=== PATIENT | male | born 1965 | race Caucasian/White ===

== ENCOUNTER 2016-10-15 13:02 | Emergency (ER) | payer MEDICARE ==
[~2016-10-15] VITALS: Ht 175.3 cm; Wt 86.2 kg
[2016-10-15 13:05] VITALS: Ht 175.3 cm; Wt 86.2 kg
--- NOTE | 2016-10-15 13:11 | NUR ---
PROVIDER Charlie CORONA APRN AT BEDSIDE FOR EXAM.
--- NOTE | 2016-10-15 13:22 | ERPDOC ---
Departure Disposition Decision Date: October 15, 2016 Disposition Decision Time: 17:49 Disposition: 01 DISCHARGED HOME, SELF-CARE Impression Impression Impression: Primary Impression: Schizophrenia Schizophrenia type: unspecified Qualified Codes: F20.9 - Schizophrenia, unspecified Severity: Moderate Condition: Stable Seen By: Mid-level only Problems/Meds/Labs Reviewed?: Yes Medications reviewed and manag: Yes Follow up care ordered?: Yes Mental Status: Alert HPI - Psychosocial General Stated Complaint: SUICIDAL THOUGHTS Time Seen by MD: 13:03 Source: patient, family (Niece) Exam Limitations: no limitations HPI - Psychosocial Initial Comments He is from [place]. Came out to [place] the first week of September. Had been taking his medications but about a week ago he chopped up all his meds and flushed them down the toilet. He has a history of Schizophrenia and his symptoms have gotten worse. He is having rapid thoughts and speech. This morning his niece found him outside yelling and cussing but no one was there. He was talking to himself. He also was yelling at the cars driving by. Was advised to come to ER for evaluation and PV will come screen if medically cleared.. He does report that he wants to kill himself. Occurred At: home Onset: Gradual Duration: 1 week Severity: moderate Associated Symptoms: anxiety, impaired concentration, suicidal ideation, DENIES : ingestion, injury, insomnia Hx of Similar Symptoms: No Allergies: Coded Allergies: lamotrigine (Verified Allergy, Mild, RASH, 10/15/16) haloperidol (Verified Adverse Reaction, Severe, 10/15/16) "IT PARALYZES ME" Review of Systems Constitutional Constitutional: DENIES: chills, dizziness, fatigue, fever, weakness Eyes Vision: DENIES: blurring, double vision ENMT Ears: DENIES: drainage, pain Sinuses: DENIES: congestion, rhinorrhea Mouth/Throat: DENIES: painful swallowing, scratchy throat, sore throat Cardiovascular Cardiac: DENIES: chest pain, orthopnea Rhythm/Rate: DENIES: irregular beat, palpitations Pulmonary Respiratory: DENIES: cough, dyspnea, sputum, tachypnea GI Upper Abdomen: DENIES: nausea, pain, vomiting Lower Abdomen: DENIES: constipation, diarrhea, pain Integumentary Skin: DENIES: rash Neurological General: DENIES: headache, numbness, tingling, weakness Physical Exam General General Nourishment: well nourished, well developed, appears stated age, no acute distress, adult General Body Habitus: well groomed Vitals and Pain First Documented Vital Signs Date Time Temp Pulse Resp B/P Pulse Ox O2 Delivery O2 Flow Rate FiO2 10/15/16 13:05 98.2 97 16 123/82 95 Room Air Weight: Kilograms: Height (feet): Height (inches): Triage Pain Scale: RN VS reviewed by Provider: Yes Normal Exams: Eyes: Pupils are PERRLA w/ EOMI, No scleral icterus, irritation, or foreign bodies noted ENMT: No facial trauma, nasal exudates, pharyngeal erythema, or exudates are noted Neck: Full range of motion, without adenopathy, JVD, bruits or thyromegaly Chest/Resp: Clear all peacock, with good airflow, and symmetry bilaterally CV: Regular rate and rhythm, without murmur or gallop, Pulses 2+ all extremities, capillary refill, <2 seconds all ext., no pedal edema noted Abdomen: Bowel sounds positive, soft, non-tender, non-distended, no hepatosplenomegaly, masses or bruits noted Lymphatic: No lymphadenopathy, or lymphedema noted Integumentary: No rashes, hives, or bruising noted Neurologic: Patient is alert, and oriented, cranial nerves, motor/sensory/ cerebellar, exams w/o gross deficits, to observation Psychiatric: Patient exhibits, appropriate attention, emotion and affect Psychiatric (brief) Psychiatric Brief: FOUND: alert, oriented, other (He does have fast speech and wanders with his subject during HPI. Has to be redirected but does have trouble no speaking during exam. ) Differential Diagnoses Considering: Anxiety, Bipolar, Hallucinations, Shira, Acute Psychosis, Suicidal Ideation Progress Results/Orders Orders Procedure Category Date Status Time Cbc W/Auto LAB 10/15/16 Complete Diff-Reflex Manual 13:15 Bmp - Basic Metabolic LAB 10/15/16 Complete Panel 13:15 Ethanol LAB 10/15/16 Complete 13:15 Drug Screen LAB 10/15/16 Complete Urine[place] [facility] [place] 13:15 Acetaminophen LAB 10/15/16 Complete 13:15 Salicylate LAB 10/15/16 Complete 13:15 Ua, Dip Wreflex LAB 10/15/16 Complete Microsc & Bowl Sander 13:15 Tsh - Thyroid Stim LAB 10/15/16 Complete Hormone 13:15 Lorazepam (Ativan) PHA 10/15/16 Complete 15:15 Olanzapine (Zyprexa) PHA 10/15/16 Complete 19:15 Lorazepam (Ativan) PHA 10/15/16 Complete 20:00 Lab Results Laboratory Tests Test 10/15/16 13:49 White Blood Count 9.2T/MM3 Red Blood Count 4.91M/MM3 Hemoglobin 14.8GM/DL Hematocrit 44.5% Mean Corpuscular Volume 90.6UM3 Mean Corpuscular Hemoglobin 30.1UUG Mean Corpuscular Hemoglobin Concent 33.3GM/DL RDW Standard Deviation 47.2FL Platelet Count 274T/MM3 Mean Platelet Volume 9.0UM3 Immature Granulocyte % (Auto) 0.1% Neutrophils (%) (Auto) 51.4% Lymphocytes (%) (Auto) 32.7% Monocytes (%) (Auto) 13.8% Eosinophils (%) (Auto) 1.6% Basophils (%) (Auto) 0.4% Absolute Immature Granulocyte (auto 0.01T/MM3 Absolute Neutrophils (auto) 4.7T/MM3 Absolute Lymphocytes (auto) 3.0T/MM3 Absolute Monocytes (auto) 1.3T/MM3 Absolute Eosinophils (auto) 0.2T/MM3 Absolute Basophils (auto) 0.0T/MM3 Urine Collection Type Cleancatch-midstream Urine Color Yellow Urine Turbidity Clear Urine pH 5.5 Urine Specific [place] >=1.030 Urine Protein Negative Urine Glucose (UA) Negative Urine Ketones Trace Urine Blood Negative Urine Nitrite Negative Urine Bilirubin Negative Urine Urobilinogen 0.2EU/DL Urine Leukocyte Esterase Negative Urinalysis Comment Microscopic not ind. Turbidity < 20 Sodium Level 148MEQ/L Potassium Level 4.2MEQ/L Chloride Level 109MEQ/L Carbon Dioxide Level 23MEQ/L Anion Gap 16MEQ/L Blood Urea Nitrogen 27.0MG/DL Creatinine 0.8MG/DL Glomerular Filtration Rate Calc 102 BUN/Creatinine Ratio 34RATIO Glucose Level 81MG/DL Calculated Osmolality 288MOSM/KG Calcium Level 9.9MG/DL Icterus Index < 2 Thyroid Stimulating Hormone (TSH) 1.11MIU/L Chemistry Specimen Hemolysis < 15 Salicylates Level < 1.0MG/DL Urine Opiates Screen NegativeNG/ML Urine Oxycodone Screen NegativeNG/ML Urine Methadone Screen NegativeNG/ML Urine Propoxyphene Screen NegativeNG/ML Acetaminophen Level < 10UG/ML Urine Barbiturates Screen NegativeNG/ML Urine Tricyclic Antidepressants NegativeNG/ML Urine Phencyclidine Screen NegativeNG/ML Urine Amphetamines Screen NegativeNG/ML Urine Methamphetamines Screen NegativeNG/ML Urine Benzodiazepines Screen PositiveNG/ML Urine Cocaine Screen NegativeNG/ML Urine Cannabinoids Screen NegativeNG/ML Urine Drug Screen Confirmation Sent out Urine Drug Screen Information Pending Alcohol, Quantitative <10MG/DL Medications Current ED Medications Lorazepam (Ativan) 1 mg O ONCE PO Last administered on 10/15/16 15:20; Start 10/15/16 at 15:15; Stop 10/15/16 at 15:16; Status DC Olanzapine (Zyprexa) 10 mg O ONCE IM Last administered on 10/15/16 19:38; Start 10/15/16 at 19:15; Stop 10/15/16 at 19:16; Status DC Lorazepam (Ativan) 1 mg O ONCE PO Last administered on 10/15/16 19:53; Start 10/15/16 at 20:00; Stop 10/15/16 at 20:01; Status DC Progress Progress CBC, BMP, and UA today are negative. UDS is positive for benzodiazepines. ASA, Acetaminophen, and ETOH today are negative. Did contact PV for need for screening. 1511- [facility] FELLOW is in room with patient for screening exam. 1748- Patient accepted to [facility] by Dr Mcclain. 0-Patient is yelling in room at no one. Is agitated. Does request Haldol even tho he states that it makes him paranoid. He also does request 4 point restraints. Zyprexa given IM at this time but not placed in restraints. CHRISTIANO CORONA APRN October 15, 2016 13:22
--- NOTE | 2016-10-15 13:43 | NUR ---
LAB AT BEDSIDE FOR BLOOD DRAW.
[2016-10-15 13:57] LABS: BASOPHILS % (AUTO) 0.4 % (0-2); EOSINOPHILS # (AUTO) 0.2 T/MM3 (0-0.5); EOSINOPHILS % (AUTO) 1.6 % (0-4); HCT - HEMATOCRIT 44.5 % (41-53); HGB - HEMOGLOBIN 14.8 GM/DL (13.5-17.5); IMMATURE GRANULOCYTE # (AUTO) 0.01 T/MM3 (0.00-0.03); IMMATURE GRANULOCYTE % (AUTO) 0.1 % (0.0-0.5); LYMPHOCYTES % (AUTO) 32.7 % (23-45); MEAN CORPUSCULAR HGB 30.1 UUG (26-34); MEAN CORPUSCULAR HGB CONC(MCHC 33.3 GM/DL (31-37); MEAN CORPUSCULAR VOLUME 90.6 UM3 (80-100); MONOCYTES # (AUTO) 1.3 T/MM3 (0-0.8); MONOCYTES % (AUTO) 13.8 % (0-9.0); NEUTROPHILS #(AUTO)-ABSOLUTE 4.7 T/MM3 (1.8-7.7); NEUTROPHILS % (AUTO) 51.4 % (33-66); RED BLOOD COUNT 4.91 M/MM3 (4.50-5.90); WBC - WHITE BLOOD COUNT 9.2 T/MM3 (4.5-11.0)
[2016-10-15 14:00] LABS: BLOOD, URINE NEGATIVE (NEGATIVE); COLOR,URINE YELLOW (YELLOW); LEUKOCYTE ESTERASE ,URINE NEGATIVE (NEGATIVE); NITRITE,URINE NEGATIVE (NEGATIVE); UROBILINOGEN,URINE 0.2 EU/DL (NORMAL)
[2016-10-15 14:06] LABS: ACETAMINOPHEN < 10 UG/ML (10-30); ANION GAP 16 MEQ/L (5-15); BUN/CREATININE RATIO 34 RATIO (6-26); CALCIUM 9.9 MG/DL (8.4-10.2); CHLORIDE 109 MEQ/L (98-107); CO2 - CARBON DIOXIDE 23 MEQ/L (22-30); CREATININE 0.8 MG/DL (0.8-1.5); ETHANOL <10 MG/DL (<10); GLOMERULAR FILTRATION RATE 102; GLUCOSE 81 MG/DL (75-110); POTASSIUM 4.2 MEQ/L (3.6-5); SALICYLATE < 1.0 MG/DL (2-20); SODIUM 148 MEQ/L (134-144)
[2016-10-15 14:08] LABS: AMPHETAMINE SCREEN,URINE NEGATIVE; BARBITURATE SCREEN,URINE NEGATIVE; BENZODIAZEPINES SCREEN,URINE POSITIVE; CANNABINOID SCREEN,URINE NEGATIVE; COCAINE SCREEN,URINE NEGATIVE; METHADONE SCREEN, URINE NEGATIVE; METHAMPHETAMINE SCREEN, URINE NEGATIVE; OPIATE SCREEN,URINE NEGATIVE; PHENCYCLIDINE SCREEN,URINE NEGATIVE; TRICYCLIC ANTIDEPRESSANT,URINE NEGATIVE
[2016-10-15] MEDS ORDERED: ARIP15TA7 PO (14:26)
[2016-10-15] MEDS ORDERED: OLAN2.5T22 PO (14:26)
[2016-10-15] MEDS ORDERED: IBUP200C93 PO (14:26)
[2016-10-15] MEDS ORDERED: MULT-1243 PO (14:26)
[2016-10-15] MEDS ORDERED: LORA0.5T86 PO (14:26)
--- NOTE | 2016-10-15 14:59 | NUR ---
[facility] DANIELE, [facility] SCREENER AT BEDSIDE.
[2016-10-15] MEDS ORDERED: LORAZEPAM 1 MG TABLET PO ONE ×2 (15:15→20:00)
--- NOTE | 2016-10-15 15:20 | NUR ---
MEDICATION ATIVAN 1MG PO ADMINISTERED
[2016-10-15 15:44] LABS: THYROID STIM HORMONE-TSH 1.11 MIU/L (0.47-4.68)
--- NOTE | 2016-10-15 16:00 | NUR ---
ACTIVITY PT TO BR WITH STEADY GAIT AT THIS TIME. TOLERATES ACTIVITY WELL.
--- NOTE | 2016-10-15 16:18 | NUR ---
STATUS/NUTRITION PT PROVIDED CRACKERS AND PEANUT BUTTER AT THIS TIME. PT STILL NOTED TO HAVE FLIGHT OF IDEAS. PT STATES "WE GOTTA DO SOMETHING ABOUT MY PSYCHIATRIC ISSUES. THAT STUFF WORKED FOR ABOUT TWO SECONDS AND THAT WAS IT. I NEED MY DEPRESSION MEDS."
--- NOTE | 2016-10-15 16:47 | NUR ---
STATUS PT REQUESTS TO GO OUTSIDE TO SMOKE A CIGARETTE. INFORMED FACILITY IS SMOKE FREE. PROVIDER NOTIFIED.
--- NOTE | 2016-10-15 18:00 | NUR ---
[facility] TO [place] REQUESTED VIA [facility]. REPORT ETA OF 2.5 TO 3 HOURS.
--- NOTE | 2016-10-15 18:04 | NUR ---
ATTEMPTED REPORT THIS RN CALLED TO [facility] FOR NURSE TO NURSE REPORT. WAS INFORMED UNABLE TO TAKE REPORT AT THIS TIME AND CALL WILL BE RETURNED.
--- NOTE | 2016-10-15 18:49 | NUR ---
REPORT CALLED TO ISA WORTHINGTON AT [facility]. DENIES QUESTIONS. ADVISED ETA OF APPROX. 2300 THIS EVENING.
--- NOTE | 2016-10-15 19:11 | NUR ---
STATUS PT NOTED TO BE AWAKE WITH INCREASING AGITATION. UPON ENTERING ROOM, PT STATES "CAN YOU GIVE ME SOME HALDOL? I DON'T CARE WHAT THEY SAY. I NEED SOME." PROVIDER NOTIFIED OF BEHAVIOR.
[2016-10-15] MEDS ORDERED: OLANZAPINE 10 MG/VIAL INJECTION IM ONE (19:15)
--- NOTE | 2016-10-15 20:41 | NUR ---
REPORT REPORT RECEIVED FROM ISA BEE AT THIS TIME.
[2016-10-15 21:47] VITALS: BP 135/74; PULSE 78; RESP 16; TEMP 98.2; O2SAT 97
--- NOTE | 2016-10-15 21:47 | NUR ---
DEPART PT IN CARE OF [facility] TRAN[facility]. PERSONAL BELONGINGS SENT WITH TRANSPORT TEAM. PT GAIT STABLE, NO SIGN OF DISTRESS.
== END 2016-10-15 21:47 ==
LOC: ED 13:02
DX: R45.851 Suicidal ideations (principal); F20.9 Schizophrenia, unspecified; Z79.899 Other long term (current) drug therapy
CPT/HCPCS: 36415; 80048; 80306; 80307; 81003; 84443; 85025; 96372; 99285; A9270; J2358